=== PATIENT | male | born 1950 | race Caucasian/White ===

== ENCOUNTER 2019-12-18 16:19 | Inpatient (IN) ==
[2019-12-19] MEDS ORDERED: FluocinoNIDE 0.05% CRM 15 GM TUBE TP PRN (22:04)
[2019-12-20] MEDS: Levothyroxine 25 MCG TABLET PO SCH (06:13)
[2019-12-20 06:30] LABS: Basophils % 0.5 %; Eosinophils # 0.3 K/mcL (0.0-0.6); Eosinophils % 4.7 %; Hemoglobin 7.8 g/dL (12.9-16.9); Immature Granulocytes % 0.7 % (0-4); Lymphocytes # 0.5 K/mcL (0.6-4.6); Lymphocytes % 8.6 %; Mean Corpuscular HGB Conc 31.2 g/dL (31.6-35.5); Mean Corpuscular Hemoglobin 29.2 pg (28.0-33.3); Mean Corpuscular Volume 93.6 fL (83.0-100.0); Mean Platelet Volume 10.2 fL (9.4-12.4); Monocytes # 0.6 K/mcL (0.0-1.3); Monocytes % 11.3 %; Neutrophils # 4.1 K/mcL (1.6-8.9); Platelet Count 238 K/mcL (140-400); Red Blood Count 2.67 M/mcL (4.19-5.50); Red Cell Distribution Width 18.7 % (11.5-14.5); Segmented Neutrophils % 74.2 %; White Blood Count 5.6 K/mcL (4.3-11.1)
[2019-12-20 06:52] LABS: Calcium 8.3 mg/dL (8.6-10.3)
[2019-12-20] MEDS: Calcium Acetate 667 MG CAPSULE PO SCH ×3 (07:53→17:50)
[2019-12-20] MEDS: allopurinoL 100 MG TABLET PO SCH (07:53)
[2019-12-20] MEDS: Cholecalciferol (D-3) 1,000 UNIT (25MCG) TABLET PO SCH (07:53)
[2019-12-20] MEDS: Loratadine 10 MG TABLET PO SCH (07:54)
[2019-12-20] MEDS: Multivit/Ca/Min/Fe/FA 1 TAB TABLET PO SCH (07:54)
[2019-12-20] MEDS: lisinopriL 5 MG TABLET PO SCH (07:54)
[2019-12-20] MEDS: Pregabalin 75 MG CAPSULE PO SCH ×2 (07:54→21:51)
[2019-12-20] MEDS: *HR* Amiodarone 200 MG TABLET PO SCH ×2 (07:54→21:51)
[2019-12-20] MEDS: *HR* GlipiZIDE XL (24 HR) 10 MG TABLET PO SCH (07:54)
[2019-12-20] MEDS: Apixaban 5 MG TABLET PO SCH ×2 (07:55→21:51)
[2019-12-20] MEDS: Aspirin Enteric Coated 81 MG Tablet PO SCH (07:55)
[2019-12-20] MEDS: Fish Oil 1,000 Mg Softgel PO SCH (07:56)
[2019-12-20] MEDS: ALOGLIPTIN BENZOATE 12.5 MG PO SCH (07:56)
[2019-12-20] MEDS ORDERED: *HR* Metformin 500 MG TABLET PO SCH (08:00)
[2019-12-20] MEDS: Dorzolamide OPTH 10 ML BOTTLE BOTH EYES SCH (08:00)
[2019-12-20] MEDS: ceFAZolin 2,000 MG in 0.9 % Sodium Chloride 100 ML IVPB SCH (08:48)
[2019-12-20] MEDS ORDERED: CEFAZOLIN 2 GM IV SCH (09:00)
[2019-12-20] MEDS ORDERED: *HR* Dextrose 50 % in Water (Vial) 50 ML VIAL IVP PRN (09:11)
[2019-12-20] MEDS ORDERED: Dextrose Gel 15 GM/37.5 ML TUBE PO PRN ×2 (09:11)
[2019-12-20] MEDS ORDERED: D5% in Water 1,000 ML IVC PRN (09:11)
[2019-12-20] MEDS: Tiotropium 18 MCG inhalation IH SCH (09:25)
[2019-12-20 15:35] LABS: Estimated Average Glucose 131 mg/dl
[2019-12-20] MEDS: Megestrol Acetate 400 MG/10 ML UDC PO SCH (18:22)
[2019-12-20] MEDS: Insulin LISPRO 300 UNITS/3 ML VIAL SQ SCH (21:30)
[2019-12-20] MEDS: Latanoprost 2.5 ML BOTTLE BOTH EYES SCH (21:51)
[2019-12-20] MEDS: *HR* OxyCODONE/APAP 5/325 TABLET PO PRN (21:53)
[2019-12-21] MEDS: Levothyroxine 25 MCG TABLET PO SCH (06:43)
[2019-12-21] MEDS: Insulin LISPRO 300 UNITS/3 ML VIAL SQ SCH ×3 (09:10→16:07)
[2019-12-21] MEDS: Aspirin Enteric Coated 81 MG Tablet PO SCH (09:17)
[2019-12-21] MEDS: Megestrol Acetate 400 MG/10 ML UDC PO SCH (09:17)
[2019-12-21] MEDS: Loratadine 10 MG TABLET PO SCH (09:17)
[2019-12-21] MEDS: Apixaban 5 MG TABLET PO SCH ×2 (09:17→20:53)
[2019-12-21] MEDS: Multivit/Ca/Min/Fe/FA 1 TAB TABLET PO SCH (09:17)
[2019-12-21] MEDS: Pregabalin 75 MG CAPSULE PO SCH ×2 (09:17→20:53)
[2019-12-21] MEDS: Calcium Acetate 667 MG CAPSULE PO SCH ×3 (09:18→16:07)
[2019-12-21] MEDS: allopurinoL 100 MG TABLET PO SCH (09:18)
[2019-12-21] MEDS: Cholecalciferol (D-3) 1,000 UNIT (25MCG) TABLET PO SCH (09:18)
[2019-12-21] MEDS: ceFAZolin 2,000 MG in 0.9 % Sodium Chloride 100 ML IVPB SCH (09:18)
[2019-12-21] MEDS: Fish Oil 1,000 Mg Softgel PO SCH (09:19)
[2019-12-21] MEDS: *HR* Amiodarone 200 MG TABLET PO SCH ×2 (09:19→20:53)
[2019-12-21] MEDS: ALOGLIPTIN BENZOATE 12.5 MG PO SCH (09:19)
[2019-12-21] MEDS: *HR* GlipiZIDE XL (24 HR) 10 MG TABLET PO SCH (09:19)
[2019-12-21] MEDS: lisinopriL 5 MG TABLET PO SCH (09:21)
[2019-12-21 09:23] LABS: Hematocrit 27.3 % (37.5-50.1); Hemoglobin 8.3 g/dL (12.9-16.9); Mean Corpuscular HGB Conc 30.4 g/dL (31.6-35.5); Mean Corpuscular Volume 95.5 fL (83.0-100.0); Mean Platelet Volume 9.9 fL (9.4-12.4); Platelet Count 246 K/mcL (140-400); Red Blood Count 2.86 M/mcL (4.19-5.50); Red Cell Distribution Width 18.8 % (11.5-14.5); White Blood Count 7.1 K/mcL (4.3-11.1)
[2019-12-21] MEDS: Dorzolamide OPTH 10 ML BOTTLE BOTH EYES SCH (09:24)
[2019-12-21 09:37] LABS: Calcium 8.7 mg/dL (8.6-10.3); Potassium 4.1 mEq/L (3.5-5.1)
[2019-12-21] MEDS: Tiotropium 18 MCG inhalation IH SCH (10:05)
[2019-12-21] MEDS ORDERED: DiphenhydraMINE CREAM 28.4 GM TUBE TP PRN (19:41)
[2019-12-21] MEDS: Latanoprost 2.5 ML BOTTLE BOTH EYES SCH (23:16)
[2019-12-21] MEDS: Melatonin 3 MG TABLET PO PRN (23:16)
[2019-12-22] MEDS: *HR* OxyCODONE/APAP 5/325 TABLET PO PRN ×2 (00:28→20:46)
[2019-12-22] MEDS: Levothyroxine 25 MCG TABLET PO SCH (06:03)
[2019-12-22] MEDS: Insulin LISPRO 300 UNITS/3 ML VIAL SQ SCH ×3 (09:02→17:44)
[2019-12-22] MEDS: Aspirin Enteric Coated 81 MG Tablet PO SCH (09:09)
[2019-12-22] MEDS: *HR* GlipiZIDE XL (24 HR) 10 MG TABLET PO SCH (09:09)
[2019-12-22] MEDS: Cholecalciferol (D-3) 1,000 UNIT (25MCG) TABLET PO SCH (09:09)
[2019-12-22] MEDS: Multivit/Ca/Min/Fe/FA 1 TAB TABLET PO SCH (09:09)
[2019-12-22] MEDS: Megestrol Acetate 400 MG/10 ML UDC PO SCH (09:09)
[2019-12-22] MEDS: Apixaban 5 MG TABLET PO SCH ×2 (09:09→20:38)
[2019-12-22] MEDS: Loratadine 10 MG TABLET PO SCH (09:09)
[2019-12-22] MEDS: Calcium Acetate 667 MG CAPSULE PO SCH ×3 (09:10→17:43)
[2019-12-22] MEDS: lisinopriL 5 MG TABLET PO SCH (09:10)
[2019-12-22] MEDS: *HR* Amiodarone 200 MG TABLET PO SCH ×2 (09:10→20:38)
[2019-12-22] MEDS: ceFAZolin 2,000 MG in 0.9 % Sodium Chloride 100 ML IVPB SCH (09:10)
[2019-12-22] MEDS: Pregabalin 75 MG CAPSULE PO SCH ×2 (09:10→20:38)
[2019-12-22] MEDS: Dorzolamide OPTH 10 ML BOTTLE BOTH EYES SCH (09:12)
[2019-12-22] MEDS: allopurinoL 100 MG TABLET PO SCH (09:13)
[2019-12-22] MEDS: Fish Oil 1,000 Mg Softgel PO SCH (09:13)
[2019-12-22] MEDS: ALOGLIPTIN BENZOATE 12.5 MG PO SCH (09:13)
[2019-12-22] MEDS: Tiotropium 18 MCG inhalation IH SCH (11:08)
[2019-12-22] MEDS: Latanoprost 2.5 ML BOTTLE BOTH EYES SCH (20:38)
[2019-12-23] MEDS: Levothyroxine 25 MCG TABLET PO SCH (05:54)
[2019-12-23] MEDS: Insulin LISPRO 300 UNITS/3 ML VIAL SQ SCH ×3 (07:37→16:50)
[2019-12-23] MEDS: ceFAZolin 2,000 MG in 0.9 % Sodium Chloride 100 ML IVPB SCH (08:11)
[2019-12-23] MEDS: Megestrol Acetate 400 MG/10 ML UDC PO SCH (08:14)
[2019-12-23] MEDS: Calcium Acetate 667 MG CAPSULE PO SCH ×3 (08:15→17:26)
[2019-12-23] MEDS: Pregabalin 75 MG CAPSULE PO SCH ×2 (08:16→20:18)
[2019-12-23] MEDS: *HR* Amiodarone 200 MG TABLET PO SCH ×2 (08:16→20:18)
[2019-12-23] MEDS: Aspirin Enteric Coated 81 MG Tablet PO SCH (08:16)
[2019-12-23] MEDS: Loratadine 10 MG TABLET PO SCH (08:16)
[2019-12-23] MEDS: lisinopriL 5 MG TABLET PO SCH (08:16)
[2019-12-23] MEDS: Cholecalciferol (D-3) 1,000 UNIT (25MCG) TABLET PO SCH (08:16)
[2019-12-23] MEDS: Multivit/Ca/Min/Fe/FA 1 TAB TABLET PO SCH (08:16)
[2019-12-23] MEDS: allopurinoL 100 MG TABLET PO SCH (08:16)
[2019-12-23] MEDS: Apixaban 5 MG TABLET PO SCH ×2 (08:17→20:18)
[2019-12-23] MEDS: Fish Oil 1,000 Mg Softgel PO SCH (08:20)
[2019-12-23] MEDS: ALOGLIPTIN BENZOATE 12.5 MG PO SCH (08:20)
[2019-12-23] MEDS: Dorzolamide OPTH 10 ML BOTTLE BOTH EYES SCH (08:21)
[2019-12-23] MEDS: Tiotropium 18 MCG inhalation IH SCH (11:32)
[2019-12-23] MEDS: Latanoprost 2.5 ML BOTTLE BOTH EYES SCH (20:18)
[2019-12-24] MEDS: Levothyroxine 25 MCG TABLET PO SCH (05:43)
[2019-12-24] MEDS: Insulin LISPRO 300 UNITS/3 ML VIAL SQ SCH ×3 (07:48→19:23)
[2019-12-24] MEDS: Megestrol Acetate 400 MG/10 ML UDC PO SCH (09:32)
[2019-12-24] MEDS: ceFAZolin 2,000 MG in 0.9 % Sodium Chloride 100 ML IVPB SCH (09:33)
[2019-12-24] MEDS: Calcium Acetate 667 MG CAPSULE PO SCH ×3 (09:33→19:23)
[2019-12-24] MEDS: Cholecalciferol (D-3) 1,000 UNIT (25MCG) TABLET PO SCH (09:33)
[2019-12-24] MEDS: Aspirin Enteric Coated 81 MG Tablet PO SCH (09:34)
[2019-12-24] MEDS: lisinopriL 5 MG TABLET PO SCH (09:34)
[2019-12-24] MEDS: *HR* Amiodarone 200 MG TABLET PO SCH ×2 (09:34→20:34)
[2019-12-24] MEDS: allopurinoL 100 MG TABLET PO SCH (09:34)
[2019-12-24] MEDS: Loratadine 10 MG TABLET PO SCH (09:34)
[2019-12-24] MEDS: Pregabalin 75 MG CAPSULE PO SCH ×2 (09:34→20:34)
[2019-12-24] MEDS: Multivit/Ca/Min/Fe/FA 1 TAB TABLET PO SCH (09:34)
[2019-12-24] MEDS: Apixaban 5 MG TABLET PO SCH ×2 (09:34→20:33)
[2019-12-24] MEDS: Dorzolamide OPTH 10 ML BOTTLE BOTH EYES SCH (09:35)
[2019-12-24] MEDS: ALOGLIPTIN BENZOATE 12.5 MG PO SCH (09:36)
[2019-12-24] MEDS: Fish Oil 1,000 Mg Softgel PO SCH (09:36)
[2019-12-24] MEDS: Tiotropium 18 MCG inhalation IH SCH (10:05)
[2019-12-24] MEDS: Latanoprost 2.5 ML BOTTLE BOTH EYES SCH (20:34)
[2019-12-24] MEDS: Melatonin 3 MG TABLET PO PRN (20:34)
[2019-12-25 06:37] LABS: Hematocrit 24.5 % (37.5-50.1); Hemoglobin 7.6 g/dL (12.9-16.9); Mean Corpuscular Hemoglobin 29.3 pg (28.0-33.3); Mean Corpuscular Volume 94.6 fL (83.0-100.0); Mean Platelet Volume 10.9 fL (9.4-12.4); Platelet Count 221 K/mcL (140-400); Red Blood Count 2.59 M/mcL (4.19-5.50); Red Cell Distribution Width 18.4 % (11.5-14.5); White Blood Count 6.4 K/mcL (4.3-11.1)
[2019-12-25 06:53] LABS: Calcium 8.2 mg/dL (8.6-10.3); Magnesium 1.9 mg/dL (1.6-2.6); Potassium 4.3 mEq/L (3.5-5.1)
[2019-12-25] MEDS: Levothyroxine 25 MCG TABLET PO SCH (06:59)
[2019-12-25] MEDS: Insulin LISPRO 300 UNITS/3 ML VIAL SQ SCH ×3 (08:46→16:57)
[2019-12-25] MEDS: Megestrol Acetate 400 MG/10 ML UDC PO SCH (09:24)
[2019-12-25] MEDS: lisinopriL 5 MG TABLET PO SCH (09:25)
[2019-12-25] MEDS: *HR* Amiodarone 200 MG TABLET PO SCH ×2 (09:25→20:05)
[2019-12-25] MEDS: Multivit/Ca/Min/Fe/FA 1 TAB TABLET PO SCH (09:25)
[2019-12-25] MEDS: Pregabalin 75 MG CAPSULE PO SCH ×2 (09:25→20:05)
[2019-12-25] MEDS: Cholecalciferol (D-3) 1,000 UNIT (25MCG) TABLET PO SCH (09:25)
[2019-12-25] MEDS: Apixaban 5 MG TABLET PO SCH ×2 (09:25→20:05)
[2019-12-25] MEDS: Aspirin Enteric Coated 81 MG Tablet PO SCH (09:25)
[2019-12-25] MEDS: Loratadine 10 MG TABLET PO SCH (09:25)
[2019-12-25] MEDS: allopurinoL 100 MG TABLET PO SCH (09:25)
[2019-12-25] MEDS: Tiotropium 18 MCG inhalation IH SCH (09:25)
[2019-12-25] MEDS: Calcium Acetate 667 MG CAPSULE PO SCH ×3 (09:25→16:56)
[2019-12-25] MEDS: Fish Oil 1,000 Mg Softgel PO SCH (09:26)
[2019-12-25] MEDS: Dorzolamide OPTH 10 ML BOTTLE BOTH EYES SCH (09:26)
[2019-12-25] MEDS: ceFAZolin 2,000 MG in 0.9 % Sodium Chloride 100 ML IVPB SCH (09:31)
[2019-12-25] MEDS: ALOGLIPTIN BENZOATE 12.5 MG PO SCH (10:00)
[2019-12-25] MEDS: Latanoprost 2.5 ML BOTTLE BOTH EYES SCH (20:04)
[2019-12-26] MEDS: Levothyroxine 25 MCG TABLET PO SCH (06:12)
[2019-12-26] MEDS: Aspirin Enteric Coated 81 MG Tablet PO SCH (08:57)
[2019-12-26] MEDS: Calcium Acetate 667 MG CAPSULE PO SCH ×3 (08:57→16:59)
[2019-12-26] MEDS: Cholecalciferol (D-3) 1,000 UNIT (25MCG) TABLET PO SCH (08:57)
[2019-12-26] MEDS: Loratadine 10 MG TABLET PO SCH (08:57)
[2019-12-26] MEDS: *HR* Amiodarone 200 MG TABLET PO SCH ×2 (08:57→21:41)
[2019-12-26] MEDS: allopurinoL 100 MG TABLET PO SCH (08:58)
[2019-12-26] MEDS: Pregabalin 75 MG CAPSULE PO SCH ×2 (08:58→21:41)
[2019-12-26] MEDS: Apixaban 5 MG TABLET PO SCH ×2 (08:58→21:41)
[2019-12-26] MEDS: Multivit/Ca/Min/Fe/FA 1 TAB TABLET PO SCH (08:58)
[2019-12-26] MEDS: Megestrol Acetate 400 MG/10 ML UDC PO SCH (08:58)
[2019-12-26] MEDS: ceFAZolin 2,000 MG in 0.9 % Sodium Chloride 100 ML IVPB SCH (09:02)
[2019-12-26] MEDS: Insulin LISPRO 300 UNITS/3 ML VIAL SQ SCH ×3 (09:03→16:59)
[2019-12-26] MEDS: Tiotropium 18 MCG inhalation IH SCH (09:04)
[2019-12-26] MEDS: Fish Oil 1,000 Mg Softgel PO SCH (09:05)
[2019-12-26] MEDS: ALOGLIPTIN BENZOATE 12.5 MG PO SCH (09:05)
[2019-12-26] MEDS: lisinopriL 5 MG TABLET PO SCH (09:06)
[2019-12-26] MEDS: Dorzolamide OPTH 10 ML BOTTLE BOTH EYES SCH ×2 (09:15→21:43)
[2019-12-26] MEDS: Latanoprost 2.5 ML BOTTLE BOTH EYES SCH (21:41)
[2019-12-26] MEDS: Ciprofloxacin/Dex *EAR* Susp 7.5 ML BOTTLE LEFT EAR SCH (21:56)
[2019-12-27] MEDS: Levothyroxine 25 MCG TABLET PO SCH (06:15)
[2019-12-27] MEDS: Insulin LISPRO 300 UNITS/3 ML VIAL SQ SCH ×3 (08:04→17:30)
[2019-12-27] MEDS: Megestrol Acetate 400 MG/10 ML UDC PO SCH (08:05)
[2019-12-27] MEDS: Multivit/Ca/Min/Fe/FA 1 TAB TABLET PO SCH (08:05)
[2019-12-27] MEDS: *HR* Amiodarone 200 MG TABLET PO SCH ×2 (08:05→20:32)
[2019-12-27] MEDS: Calcium Acetate 667 MG CAPSULE PO SCH ×3 (08:05→17:37)
[2019-12-27] MEDS: Aspirin Enteric Coated 81 MG Tablet PO SCH (08:05)
[2019-12-27] MEDS: allopurinoL 100 MG TABLET PO SCH (08:05)
[2019-12-27] MEDS: Cholecalciferol (D-3) 1,000 UNIT (25MCG) TABLET PO SCH (08:05)
[2019-12-27] MEDS: Loratadine 10 MG TABLET PO SCH (08:06)
[2019-12-27] MEDS: Pregabalin 75 MG CAPSULE PO SCH ×2 (08:06→20:33)
[2019-12-27] MEDS: Apixaban 5 MG TABLET PO SCH ×2 (08:06→20:32)
[2019-12-27] MEDS: lisinopriL 5 MG TABLET PO SCH (08:06)
[2019-12-27] MEDS: Fish Oil 1,000 Mg Softgel PO SCH (08:10)
[2019-12-27] MEDS: ALOGLIPTIN BENZOATE 12.5 MG PO SCH (08:11)
[2019-12-27] MEDS: ceFAZolin 2,000 MG in 0.9 % Sodium Chloride 100 ML IVPB SCH (08:16)
[2019-12-27] MEDS: Ciprofloxacin/Dex *EAR* Susp 7.5 ML BOTTLE LEFT EAR SCH ×2 (08:48→20:36)
[2019-12-27] MEDS: Tiotropium 18 MCG inhalation IH SCH (10:29)
[2019-12-27] MEDS: Melatonin 3 MG TABLET PO PRN (20:33)
[2019-12-27] MEDS: *HR* OxyCODONE/APAP 5/325 TABLET PO PRN (20:34)
[2019-12-27] MEDS: Latanoprost 2.5 ML BOTTLE BOTH EYES SCH (20:35)
[2019-12-28] MEDS: Levothyroxine 25 MCG TABLET PO SCH (05:28)
[2019-12-28 05:48] LABS: Basophils % 0.7 %; Eosinophils # 0.3 K/mcL (0.0-0.6); Eosinophils % 4.4 %; Hematocrit 23.2 % (37.5-50.1); Hemoglobin 7.2 g/dL (12.9-16.9); Immature Granulocytes % 0.5 % (0-4); Lymphocytes # 0.8 K/mcL (0.6-4.6); Lymphocytes % 12.6 %; Mean Corpuscular Hemoglobin 29.5 pg (28.0-33.3); Mean Corpuscular Volume 95.1 fL (83.0-100.0); Mean Platelet Volume 10.1 fL (9.4-12.4); Monocytes # 0.9 K/mcL (0.0-1.3); Platelet Count 249 K/mcL (140-400); Red Blood Count 2.44 M/mcL (4.19-5.50); Red Cell Distribution Width 17.7 % (11.5-14.5); Segmented Neutrophils % 66.8 %; White Blood Count 5.9 K/mcL (4.3-11.1)
[2019-12-28] MEDS: Megestrol Acetate 400 MG/10 ML UDC PO SCH (08:53)
[2019-12-28] MEDS: Aspirin Enteric Coated 81 MG Tablet PO SCH (08:54)
[2019-12-28] MEDS: Multivit/Ca/Min/Fe/FA 1 TAB TABLET PO SCH (08:54)
[2019-12-28] MEDS: Cholecalciferol (D-3) 1,000 UNIT (25MCG) TABLET PO SCH (08:54)
[2019-12-28] MEDS: Calcium Acetate 667 MG CAPSULE PO SCH ×3 (08:54→18:55)
[2019-12-28] MEDS: Loratadine 10 MG TABLET PO SCH (08:54)
[2019-12-28] MEDS: lisinopriL 5 MG TABLET PO SCH (08:54)
[2019-12-28] MEDS: Pregabalin 75 MG CAPSULE PO SCH ×2 (08:54→20:16)
[2019-12-28] MEDS: *HR* Amiodarone 200 MG TABLET PO SCH ×2 (08:54→20:16)
[2019-12-28] MEDS: allopurinoL 100 MG TABLET PO SCH (08:54)
[2019-12-28] MEDS: Ciprofloxacin/Dex *EAR* Susp 7.5 ML BOTTLE LEFT EAR SCH ×2 (08:54→20:20)
[2019-12-28] MEDS: Apixaban 5 MG TABLET PO SCH ×2 (08:54→20:17)
[2019-12-28] MEDS: ALOGLIPTIN BENZOATE 12.5 MG PO SCH (08:55)
[2019-12-28] MEDS: Fish Oil 1,000 Mg Softgel PO SCH (08:55)
[2019-12-28] MEDS: Dorzolamide OPTH 10 ML BOTTLE BOTH EYES SCH (08:55)
[2019-12-28] MEDS: Insulin LISPRO 300 UNITS/3 ML VIAL SQ SCH ×3 (08:55→18:55)
[2019-12-28] MEDS: Tiotropium 18 MCG inhalation IH SCH (10:34)
[2019-12-28] MEDS: Melatonin 3 MG TABLET PO PRN (20:16)
[2019-12-28] MEDS: Latanoprost 2.5 ML BOTTLE BOTH EYES SCH (20:18)
[2019-12-29] MEDS: Levothyroxine 25 MCG TABLET PO SCH (05:48)
[2019-12-29] MEDS ORDERED: Ondansetron 4 MG/2 ML VIAL IVP ONE (06:32)
[2019-12-29] MEDS: Tiotropium 18 MCG inhalation IH SCH (07:53)
[2019-12-29] MEDS: Insulin LISPRO 300 UNITS/3 ML VIAL SQ SCH ×3 (08:31→17:19)
[2019-12-29] MEDS: Apixaban 5 MG TABLET PO SCH ×2 (08:37→21:29)
[2019-12-29] MEDS: Megestrol Acetate 400 MG/10 ML UDC PO SCH (08:37)
[2019-12-29] MEDS: *HR* Amiodarone 200 MG TABLET PO SCH ×2 (08:38→21:29)
[2019-12-29] MEDS: Multivit/Ca/Min/Fe/FA 1 TAB TABLET PO SCH (08:38)
[2019-12-29] MEDS: Loratadine 10 MG TABLET PO SCH (08:38)
[2019-12-29] MEDS: Cholecalciferol (D-3) 1,000 UNIT (25MCG) TABLET PO SCH (08:38)
[2019-12-29] MEDS: allopurinoL 100 MG TABLET PO SCH (08:38)
[2019-12-29] MEDS: Pregabalin 75 MG CAPSULE PO SCH ×2 (08:38→21:29)
[2019-12-29] MEDS: lisinopriL 5 MG TABLET PO SCH (08:38)
[2019-12-29] MEDS: Aspirin Enteric Coated 81 MG Tablet PO SCH (08:38)
[2019-12-29] MEDS: Calcium Acetate 667 MG CAPSULE PO SCH ×3 (08:38→17:19)
[2019-12-29] MEDS: Fish Oil 1,000 Mg Softgel PO SCH (08:42)
[2019-12-29] MEDS: Ciprofloxacin/Dex *EAR* Susp 7.5 ML BOTTLE LEFT EAR SCH ×2 (08:42→21:29)
[2019-12-29] MEDS: ALOGLIPTIN BENZOATE 12.5 MG PO SCH (08:42)
[2019-12-29] MEDS: Dorzolamide OPTH 10 ML BOTTLE BOTH EYES SCH (08:42)
[2019-12-29] MEDS: *HR* OxyCODONE/APAP 5/325 TABLET PO PRN (18:23)
[2019-12-29] MEDS: Latanoprost 2.5 ML BOTTLE BOTH EYES SCH (21:28)
[2019-12-29] MEDS: Melatonin 3 MG TABLET PO PRN (21:29)
[2019-12-30] MEDS: Levothyroxine 25 MCG TABLET PO SCH (06:29)
[2019-12-30 07:24] LABS: Basophils % 0.4 %; Eosinophils # 0.2 K/mcL (0.0-0.6); Eosinophils % 2.9 %; Hematocrit 25.1 % (37.5-50.1); Hemoglobin 7.8 g/dL (12.9-16.9); Lymphocytes # 0.9 K/mcL (0.6-4.6); Mean Corpuscular HGB Conc 31.1 g/dL (31.6-35.5); Mean Corpuscular Hemoglobin 29.7 pg (28.0-33.3); Mean Corpuscular Volume 95.4 fL (83.0-100.0); Mean Platelet Volume 10.1 fL (9.4-12.4); Monocytes # 0.8 K/mcL (0.0-1.3); Monocytes % 12.1 %; Neutrophils # 4.9 K/mcL (1.6-8.9); Platelet Count 283 K/mcL (140-400); Red Blood Count 2.63 M/mcL (4.19-5.50); Segmented Neutrophils % 70.6 %; White Blood Count 6.9 K/mcL (4.3-11.1)
[2019-12-30 07:42] LABS: Calcium 8.9 mg/dL (8.6-10.3); Potassium 4.4 mEq/L (3.5-5.1)
[2019-12-30] MEDS: Insulin LISPRO 300 UNITS/3 ML VIAL SQ SCH ×3 (08:54→17:29)
[2019-12-30] MEDS: Megestrol Acetate 400 MG/10 ML UDC PO SCH (08:59)
[2019-12-30] MEDS: Multivit/Ca/Min/Fe/FA 1 TAB TABLET PO SCH (08:59)
[2019-12-30] MEDS: Cholecalciferol (D-3) 1,000 UNIT (25MCG) TABLET PO SCH (09:00)
[2019-12-30] MEDS: Pregabalin 75 MG CAPSULE PO SCH ×2 (09:00→20:04)
[2019-12-30] MEDS: allopurinoL 100 MG TABLET PO SCH (09:00)
[2019-12-30] MEDS: Apixaban 5 MG TABLET PO SCH ×2 (09:00→20:04)
[2019-12-30] MEDS: Aspirin Enteric Coated 81 MG Tablet PO SCH (09:00)
[2019-12-30] MEDS: Loratadine 10 MG TABLET PO SCH (09:00)
[2019-12-30] MEDS: Calcium Acetate 667 MG CAPSULE PO SCH ×3 (09:00→17:29)
[2019-12-30] MEDS: Ciprofloxacin/Dex *EAR* Susp 7.5 ML BOTTLE LEFT EAR SCH ×2 (09:00→20:06)
[2019-12-30] MEDS: lisinopriL 5 MG TABLET PO SCH (09:00)
[2019-12-30] MEDS: Fish Oil 1,000 Mg Softgel PO SCH (09:04)
[2019-12-30] MEDS: ALOGLIPTIN BENZOATE 12.5 MG PO SCH (09:04)
[2019-12-30] MEDS: *HR* Amiodarone 200 MG TABLET PO SCH ×2 (09:08→20:03)
[2019-12-30] MEDS: Dorzolamide OPTH 10 ML BOTTLE BOTH EYES SCH (09:08)
[2019-12-30] MEDS: Tiotropium 18 MCG inhalation IH SCH (10:57)
[2019-12-30] MEDS: Melatonin 3 MG TABLET PO PRN (20:04)
[2019-12-30] MEDS: Latanoprost 2.5 ML BOTTLE BOTH EYES SCH (20:05)
[2019-12-31] MEDS: Levothyroxine 25 MCG TABLET PO SCH (05:56)
[2019-12-31] MEDS: Insulin LISPRO 300 UNITS/3 ML VIAL SQ SCH ×3 (07:19→18:30)
[2019-12-31] MEDS: Multivit/Ca/Min/Fe/FA 1 TAB TABLET PO SCH (07:33)
[2019-12-31] MEDS: Calcium Acetate 667 MG CAPSULE PO SCH ×3 (07:33→18:30)
[2019-12-31] MEDS: allopurinoL 100 MG TABLET PO SCH (07:33)
[2019-12-31] MEDS: Cholecalciferol (D-3) 1,000 UNIT (25MCG) TABLET PO SCH (07:34)
[2019-12-31] MEDS: lisinopriL 5 MG TABLET PO SCH (07:34)
[2019-12-31] MEDS: Apixaban 5 MG TABLET PO SCH ×2 (07:34→20:34)
[2019-12-31] MEDS: Loratadine 10 MG TABLET PO SCH (07:34)
[2019-12-31] MEDS: Ciprofloxacin/Dex *EAR* Susp 7.5 ML BOTTLE LEFT EAR SCH (07:34)
[2019-12-31] MEDS: Megestrol Acetate 400 MG/10 ML UDC PO SCH (07:34)
[2019-12-31] MEDS: Aspirin Enteric Coated 81 MG Tablet PO SCH (07:34)
[2019-12-31] MEDS: Pregabalin 75 MG CAPSULE PO SCH ×2 (07:34→20:35)
[2019-12-31] MEDS: *HR* Amiodarone 200 MG TABLET PO SCH ×2 (07:34→20:36)
[2019-12-31] MEDS: Fish Oil 1,000 Mg Softgel PO SCH (07:35)
[2019-12-31] MEDS: ALOGLIPTIN BENZOATE 12.5 MG PO SCH (07:35)
[2019-12-31] MEDS: Dorzolamide OPTH 10 ML BOTTLE BOTH EYES SCH (07:35)
[2019-12-31] MEDS: Tiotropium 18 MCG inhalation IH SCH (10:24)
[2019-12-31] MEDS: Melatonin 3 MG TABLET PO PRN (20:35)
[2019-12-31] MEDS: Latanoprost 2.5 ML BOTTLE BOTH EYES SCH (20:53)
[2020-01-01] MEDS: Levothyroxine 25 MCG TABLET PO SCH (05:38)
[2020-01-01] MEDS: Insulin LISPRO 300 UNITS/3 ML VIAL SQ SCH ×3 (07:46→16:46)
[2020-01-01] MEDS: Loratadine 10 MG TABLET PO SCH (07:48)
[2020-01-01] MEDS: Apixaban 5 MG TABLET PO SCH ×2 (07:48→20:00)
[2020-01-01] MEDS: Aspirin Enteric Coated 81 MG Tablet PO SCH (07:48)
[2020-01-01] MEDS: Cholecalciferol (D-3) 1,000 UNIT (25MCG) TABLET PO SCH (07:48)
[2020-01-01] MEDS: *HR* Amiodarone 200 MG TABLET PO SCH ×2 (07:48→20:00)
[2020-01-01] MEDS: lisinopriL 5 MG TABLET PO SCH (07:48)
[2020-01-01] MEDS: allopurinoL 100 MG TABLET PO SCH (07:48)
[2020-01-01] MEDS: Pregabalin 75 MG CAPSULE PO SCH ×2 (07:48→19:57)
[2020-01-01] MEDS: Calcium Acetate 667 MG CAPSULE PO SCH ×3 (07:49→17:07)
[2020-01-01] MEDS: Multivit/Ca/Min/Fe/FA 1 TAB TABLET PO SCH (07:49)
[2020-01-01] MEDS: Megestrol Acetate 400 MG/10 ML UDC PO SCH (07:49)
[2020-01-01] MEDS: Fish Oil 1,000 Mg Softgel PO SCH (07:50)
[2020-01-01] MEDS: ALOGLIPTIN BENZOATE 12.5 MG PO SCH (07:50)
[2020-01-01 10:12] LABS: Hematocrit 25.6 % (37.5-50.1); Hemoglobin 8.1 g/dL (12.9-16.9); Mean Corpuscular HGB Conc 31.6 g/dL (31.6-35.5); Mean Corpuscular Volume 94.8 fL (83.0-100.0); Platelet Count 337 K/mcL (140-400); Red Cell Distribution Width 18.1 % (11.5-14.5); White Blood Count 8.3 K/mcL (4.3-11.1)
[2020-01-01] MEDS: Dorzolamide OPTH 10 ML BOTTLE BOTH EYES SCH (10:15)
[2020-01-01] MEDS: Tiotropium 18 MCG inhalation IH SCH (10:24)
[2020-01-01 10:31] LABS: Albumin/Globulin Ratio 0.9 (1.1-2.2); Bilirubin,Total 0.4 mg/dL (0.3-1.0); Calcium 9.4 mg/dL (8.6-10.3); Globulin 3.4 g/dL (2.4-3.5); Total Protein 6.4 g/dL (6.4-8.9)
[2020-01-01] MEDS ORDERED: *HR* LORazepam 0.5 MG TABLET PO ONE (19:18)
[2020-01-01] MEDS: Latanoprost 2.5 ML BOTTLE BOTH EYES SCH (20:01)
[2020-01-01] MEDS: Melatonin 3 MG TABLET PO PRN (21:39)
[2020-01-02] MEDS: Levothyroxine 25 MCG TABLET PO SCH (05:39)
[2020-01-02] MEDS: Insulin LISPRO 300 UNITS/3 ML VIAL SQ SCH ×3 (09:22→19:01)
[2020-01-02] MEDS: Apixaban 5 MG TABLET PO SCH ×2 (09:26→19:50)
[2020-01-02] MEDS: allopurinoL 100 MG TABLET PO SCH (09:27)
[2020-01-02] MEDS: Cholecalciferol (D-3) 1,000 UNIT (25MCG) TABLET PO SCH (09:27)
[2020-01-02] MEDS: Aspirin Enteric Coated 81 MG Tablet PO SCH (09:27)
[2020-01-02] MEDS: *HR* Amiodarone 200 MG TABLET PO SCH ×2 (09:27→19:49)
[2020-01-02] MEDS: Calcium Acetate 667 MG CAPSULE PO SCH ×3 (09:27→19:02)
[2020-01-02] MEDS: Multivit/Ca/Min/Fe/FA 1 TAB TABLET PO SCH (09:27)
[2020-01-02] MEDS: Pregabalin 75 MG CAPSULE PO SCH ×2 (09:27→19:51)
[2020-01-02] MEDS: lisinopriL 5 MG TABLET PO SCH (09:27)
[2020-01-02] MEDS: Loratadine 10 MG TABLET PO SCH (09:27)
[2020-01-02] MEDS: Megestrol Acetate 400 MG/10 ML UDC PO SCH (09:27)
[2020-01-02] MEDS: Dorzolamide OPTH 10 ML BOTTLE BOTH EYES SCH (09:28)
[2020-01-02] MEDS: ALOGLIPTIN BENZOATE 12.5 MG PO SCH (09:28)
[2020-01-02] MEDS: Fish Oil 1,000 Mg Softgel PO SCH (09:29)
[2020-01-02] MEDS: Tiotropium 18 MCG inhalation IH SCH (11:10)
[2020-01-02] MEDS ORDERED: *HR* LORazepam 0.5 MG TABLET PO ONE (19:18)
[2020-01-02] MEDS: Latanoprost 2.5 ML BOTTLE BOTH EYES SCH (19:52)
[2020-01-02] MEDS: Melatonin 3 MG TABLET PO PRN (21:46)
[2020-01-03 06:31] LABS: Hematocrit 22.3 % (37.5-50.1); Mean Corpuscular HGB Conc 31.4 g/dL (31.6-35.5); Mean Corpuscular Hemoglobin 29.7 pg (28.0-33.3); Mean Corpuscular Volume 94.5 fL (83.0-100.0); Mean Platelet Volume 10.6 fL (9.4-12.4); Platelet Count 323 K/mcL (140-400); Red Blood Count 2.36 M/mcL (4.19-5.50); White Blood Count 6.9 K/mcL (4.3-11.1)
[2020-01-03 07:06] LABS: Albumin 2.8 g/dL (3.5-5.7); Albumin/Globulin Ratio 0.9 (1.1-2.2); Bilirubin,Total 0.4 mg/dL (0.3-1.0); Calcium 9.2 mg/dL (8.6-10.3); Globulin 3.2 g/dL (2.4-3.5); Potassium 3.4 mEq/L (3.5-5.1)
[2020-01-03] MEDS: allopurinoL 100 MG TABLET PO SCH (08:09)
[2020-01-03] MEDS: lisinopriL 5 MG TABLET PO SCH (08:09)
[2020-01-03] MEDS: Calcium Acetate 667 MG CAPSULE PO SCH ×3 (08:09→16:30)
[2020-01-03] MEDS: Loratadine 10 MG TABLET PO SCH (08:09)
[2020-01-03] MEDS: Cholecalciferol (D-3) 1,000 UNIT (25MCG) TABLET PO SCH (08:10)
[2020-01-03] MEDS: Levothyroxine 25 MCG TABLET PO SCH (08:10)
[2020-01-03] MEDS: Pregabalin 75 MG CAPSULE PO SCH ×2 (08:10→20:47)
[2020-01-03] MEDS: Megestrol Acetate 400 MG/10 ML UDC PO SCH (08:10)
[2020-01-03] MEDS: Apixaban 5 MG TABLET PO SCH ×2 (08:10→20:47)
[2020-01-03] MEDS: *HR* Amiodarone 200 MG TABLET PO SCH ×2 (08:10→20:47)
[2020-01-03] MEDS: Multivit/Ca/Min/Fe/FA 1 TAB TABLET PO SCH (08:10)
[2020-01-03] MEDS: Aspirin Enteric Coated 81 MG Tablet PO SCH (08:10)
[2020-01-03] MEDS: Fish Oil 1,000 Mg Softgel PO SCH (08:11)
[2020-01-03] MEDS: Dorzolamide OPTH 10 ML BOTTLE BOTH EYES SCH (08:11)
[2020-01-03] MEDS: ALOGLIPTIN BENZOATE 12.5 MG PO SCH (08:11)
[2020-01-03] MEDS: Insulin LISPRO 300 UNITS/3 ML VIAL SQ SCH ×3 (08:11→16:30)
[2020-01-03] MEDS: Tiotropium 18 MCG inhalation IH SCH (08:33)
[2020-01-03] MEDS ORDERED: 0.9 % Sodium Chloride 250 ML IVC SCH (10:30)
[2020-01-03] MEDS ORDERED: Lactulose Oral Soln 20 GM/30 ML UDC PO ONE (12:26)
[2020-01-03 19:39] LABS: % Iron Saturation 12 % (20-55); Iron 27 mcg/dL (65-175); Transferrin 165 mg/dL (203-362)
[2020-01-03 19:58] LABS: Ferritin 352 ng/mL (20-250)
[2020-01-03] MEDS: QUEtiapine Fumarate 25 MG TABLET PO SCH (20:47)
[2020-01-03 20:48] LABS: Folate > 22.3 ng/mL (3.0-16.0); Vitamin B12 377 pg/mL (250-1100)
[2020-01-03] MEDS: Latanoprost 2.5 ML BOTTLE BOTH EYES SCH (20:48)
[2020-01-04] MEDS: Levothyroxine 25 MCG TABLET PO SCH (06:27)
[2020-01-04 07:04] LABS: Hematocrit 26.1 % (37.5-50.1); Hemoglobin 8.3 g/dL (12.9-16.9); Mean Corpuscular HGB Conc 31.8 g/dL (31.6-35.5); Mean Corpuscular Hemoglobin 29.9 pg (28.0-33.3); Mean Corpuscular Volume 93.9 fL (83.0-100.0); Mean Platelet Volume 10.5 fL (9.4-12.4); Platelet Count 341 K/mcL (140-400); Red Blood Count 2.78 M/mcL (4.19-5.50); Red Cell Distribution Width 18.3 % (11.5-14.5); White Blood Count 6.9 K/mcL (4.3-11.1)
[2020-01-04] MEDS: Insulin LISPRO 300 UNITS/3 ML VIAL SQ SCH ×3 (07:39→16:36)
[2020-01-04] MEDS: lisinopriL 5 MG TABLET PO SCH (07:40)
[2020-01-04] MEDS: Megestrol Acetate 400 MG/10 ML UDC PO SCH (07:59)
[2020-01-04] MEDS: Loratadine 10 MG TABLET PO SCH (07:59)
[2020-01-04] MEDS: allopurinoL 100 MG TABLET PO SCH (07:59)
[2020-01-04] MEDS: Calcium Acetate 667 MG CAPSULE PO SCH ×3 (07:59→16:36)
[2020-01-04] MEDS: Pregabalin 75 MG CAPSULE PO SCH ×2 (07:59→21:03)
[2020-01-04] MEDS: Cholecalciferol (D-3) 1,000 UNIT (25MCG) TABLET PO SCH (07:59)
[2020-01-04] MEDS: Apixaban 5 MG TABLET PO SCH ×2 (07:59→21:02)
[2020-01-04] MEDS: Fish Oil 1,000 Mg Softgel PO SCH (08:01)
[2020-01-04] MEDS: ALOGLIPTIN BENZOATE 12.5 MG PO SCH (08:01)
[2020-01-04] MEDS: Aspirin Enteric Coated 81 MG Tablet PO SCH (08:01)
[2020-01-04] MEDS: *HR* Amiodarone 200 MG TABLET PO SCH ×2 (08:01→21:03)
[2020-01-04] MEDS: Multivit/Ca/Min/Fe/FA 1 TAB TABLET PO SCH (08:01)
[2020-01-04] MEDS: Tiotropium 18 MCG inhalation IH SCH (08:03)
[2020-01-04] MEDS: Dorzolamide OPTH 10 ML BOTTLE BOTH EYES SCH (08:08)
[2020-01-04] MEDS: QUEtiapine Fumarate 25 MG TABLET PO SCH (21:02)
[2020-01-04] MEDS: Latanoprost 2.5 ML BOTTLE BOTH EYES SCH (21:03)
[2020-01-04] MEDS: Melatonin 3 MG TABLET PO PRN (21:03)
[2020-01-05] MEDS: Levothyroxine 25 MCG TABLET PO SCH (05:37)
[2020-01-05 06:47] LABS: Basophils % 0.4 %; Eosinophils # 0.2 K/mcL (0.0-0.6); Eosinophils % 3.4 %; Hemoglobin 8.3 g/dL (12.9-16.9); Immature Granulocytes % 1.1 % (0-4); Lymphocytes % 14.4 %; Mean Corpuscular HGB Conc 31.9 g/dL (31.6-35.5); Mean Corpuscular Hemoglobin 29.7 pg (28.0-33.3); Mean Corpuscular Volume 93.2 fL (83.0-100.0); Mean Platelet Volume 10.7 fL (9.4-12.4); Monocytes # 0.9 K/mcL (0.0-1.3); Monocytes % 12.2 %; Neutrophils # 4.8 K/mcL (1.6-8.9); Platelet Count 320 K/mcL (140-400); Red Blood Count 2.79 M/mcL (4.19-5.50); Segmented Neutrophils % 68.5 %; White Blood Count 7.1 K/mcL (4.3-11.1)
[2020-01-05 07:13] LABS: Calcium 8.5 mg/dL (8.6-10.3); Potassium 3.3 mEq/L (3.5-5.1)
[2020-01-05] MEDS: Insulin LISPRO 300 UNITS/3 ML VIAL SQ SCH ×3 (07:39→16:45)
[2020-01-05] MEDS: Loratadine 10 MG TABLET PO SCH (07:41)
[2020-01-05] MEDS: Apixaban 5 MG TABLET PO SCH ×2 (07:41→20:32)
[2020-01-05] MEDS: Dorzolamide OPTH 10 ML BOTTLE BOTH EYES SCH (07:42)
[2020-01-05] MEDS: Pregabalin 75 MG CAPSULE PO SCH ×2 (07:42→20:33)
[2020-01-05] MEDS: Calcium Acetate 667 MG CAPSULE PO SCH ×3 (07:42→16:45)
[2020-01-05] MEDS: *HR* Amiodarone 200 MG TABLET PO SCH ×2 (07:42→20:32)
[2020-01-05] MEDS: Multivit/Ca/Min/Fe/FA 1 TAB TABLET PO SCH (07:42)
[2020-01-05] MEDS: Aspirin Enteric Coated 81 MG Tablet PO SCH (07:42)
[2020-01-05] MEDS: Fish Oil 1,000 Mg Softgel PO SCH (07:42)
[2020-01-05] MEDS: Cholecalciferol (D-3) 1,000 UNIT (25MCG) TABLET PO SCH (07:42)
[2020-01-05] MEDS: allopurinoL 100 MG TABLET PO SCH (07:42)
[2020-01-05] MEDS: Megestrol Acetate 400 MG/10 ML UDC PO SCH (07:42)
[2020-01-05] MEDS: lisinopriL 5 MG TABLET PO SCH (07:43)
[2020-01-05] MEDS: ALOGLIPTIN BENZOATE 12.5 MG PO SCH (07:43)
[2020-01-05] MEDS ORDERED: *HR* LORazepam 0.5 MG TABLET PO PRN (09:19)
[2020-01-05] MEDS: Tiotropium 18 MCG inhalation IH SCH (10:48)
[2020-01-05] MEDS: QUEtiapine Fumarate 25 MG TABLET PO SCH (20:32)
[2020-01-05] MEDS: Melatonin 3 MG TABLET PO PRN (20:33)
[2020-01-05] MEDS: Latanoprost 2.5 ML BOTTLE BOTH EYES SCH (22:57)
[2020-01-06] MEDS: Levothyroxine 25 MCG TABLET PO SCH (05:58)
[2020-01-06] MEDS: *HR* Amiodarone 200 MG TABLET PO SCH ×2 (08:39→21:10)
[2020-01-06] MEDS: Calcium Acetate 667 MG CAPSULE PO SCH ×3 (08:39→16:40)
[2020-01-06] MEDS: Cholecalciferol (D-3) 1,000 UNIT (25MCG) TABLET PO SCH (08:39)
[2020-01-06] MEDS: Apixaban 5 MG TABLET PO SCH ×2 (08:39→21:10)
[2020-01-06] MEDS: Loratadine 10 MG TABLET PO SCH (08:39)
[2020-01-06] MEDS: Pregabalin 75 MG CAPSULE PO SCH ×2 (08:39→21:10)
[2020-01-06] MEDS: Aspirin Enteric Coated 81 MG Tablet PO SCH (08:39)
[2020-01-06] MEDS: Multivit/Ca/Min/Fe/FA 1 TAB TABLET PO SCH (08:39)
[2020-01-06] MEDS: allopurinoL 100 MG TABLET PO SCH (08:40)
[2020-01-06] MEDS: Insulin LISPRO 300 UNITS/3 ML VIAL SQ SCH ×3 (08:40→16:40)
[2020-01-06] MEDS: Megestrol Acetate 400 MG/10 ML UDC PO SCH (08:41)
[2020-01-06] MEDS: Dorzolamide OPTH 10 ML BOTTLE BOTH EYES SCH (08:42)
[2020-01-06] MEDS: ALOGLIPTIN BENZOATE 12.5 MG PO SCH (08:42)
[2020-01-06] MEDS: Fish Oil 1,000 Mg Softgel PO SCH (08:42)
[2020-01-06] MEDS: lisinopriL 5 MG TABLET PO SCH (08:43)
[2020-01-06] MEDS: Tiotropium 18 MCG inhalation IH SCH (10:27)
[2020-01-06] MEDS: Melatonin 3 MG TABLET PO PRN (21:10)
[2020-01-06] MEDS: QUEtiapine Fumarate 25 MG TABLET PO SCH (21:10)
[2020-01-06] MEDS: Latanoprost 2.5 ML BOTTLE BOTH EYES SCH (21:41)
[2020-01-07] MEDS: Levothyroxine 25 MCG TABLET PO SCH (05:59)
[2020-01-07] MEDS: Insulin LISPRO 300 UNITS/3 ML VIAL SQ SCH ×3 (07:15→16:10)
[2020-01-07] MEDS: Cholecalciferol (D-3) 1,000 UNIT (25MCG) TABLET PO SCH (08:13)
[2020-01-07] MEDS: Calcium Acetate 667 MG CAPSULE PO SCH ×3 (08:13→18:54)
[2020-01-07] MEDS: Pregabalin 75 MG CAPSULE PO SCH ×2 (08:13→20:53)
[2020-01-07] MEDS: Loratadine 10 MG TABLET PO SCH (08:13)
[2020-01-07] MEDS: *HR* Amiodarone 200 MG TABLET PO SCH ×2 (08:14→20:53)
[2020-01-07] MEDS: Apixaban 5 MG TABLET PO SCH ×2 (08:14→20:52)
[2020-01-07] MEDS: Aspirin Enteric Coated 81 MG Tablet PO SCH (08:14)
[2020-01-07] MEDS: Multivit/Ca/Min/Fe/FA 1 TAB TABLET PO SCH (08:14)
[2020-01-07] MEDS: Megestrol Acetate 400 MG/10 ML UDC PO SCH (08:14)
[2020-01-07] MEDS: allopurinoL 100 MG TABLET PO SCH (08:14)
[2020-01-07] MEDS: ALOGLIPTIN BENZOATE 12.5 MG PO SCH (08:19)
[2020-01-07] MEDS: Fish Oil 1,000 Mg Softgel PO SCH (08:19)
[2020-01-07] MEDS: Dorzolamide OPTH 10 ML BOTTLE BOTH EYES SCH (08:20)
[2020-01-07] MEDS: Tiotropium 18 MCG inhalation IH SCH (11:06)
[2020-01-07] MEDS: Melatonin 3 MG TABLET PO PRN (20:52)
[2020-01-07] MEDS: QUEtiapine Fumarate 25 MG TABLET PO SCH (20:53)
[2020-01-07] MEDS: Latanoprost 2.5 ML BOTTLE BOTH EYES SCH (20:53)
[2020-01-08] MEDS: Levothyroxine 25 MCG TABLET PO SCH (05:44)
[2020-01-08] MEDS: Insulin LISPRO 300 UNITS/3 ML VIAL SQ SCH ×3 (07:17→16:51)
[2020-01-08 07:22] LABS: Hematocrit 29.1 % (37.5-50.1); Hemoglobin 9.6 g/dL (12.9-16.9); Mean Corpuscular Hemoglobin 30.3 pg (28.0-33.3); Mean Corpuscular Volume 91.8 fL (83.0-100.0); Mean Platelet Volume 10.1 fL (9.4-12.4); Platelet Count 319 K/mcL (140-400); Red Blood Count 3.17 M/mcL (4.19-5.50); Red Cell Distribution Width 17.3 % (11.5-14.5)
[2020-01-08] MEDS ORDERED: 0.9 % Sodium Chloride 500 ML IVC ONE ×2 (07:42→09:57)
[2020-01-08 07:43] LABS: Calcium 9.2 mg/dL (8.6-10.3); Potassium 3.7 mEq/L (3.5-5.1)
[2020-01-08] MEDS: Apixaban 5 MG TABLET PO SCH ×2 (08:31→20:34)
[2020-01-08] MEDS: Pregabalin 75 MG CAPSULE PO SCH ×2 (08:31→20:35)
[2020-01-08] MEDS: Multivit/Ca/Min/Fe/FA 1 TAB TABLET PO SCH (08:31)
[2020-01-08] MEDS: Cholecalciferol (D-3) 1,000 UNIT (25MCG) TABLET PO SCH (08:31)
[2020-01-08] MEDS: Aspirin Enteric Coated 81 MG Tablet PO SCH (08:31)
[2020-01-08] MEDS: Calcium Acetate 667 MG CAPSULE PO SCH ×3 (08:31→17:11)
[2020-01-08] MEDS: Megestrol Acetate 400 MG/10 ML UDC PO SCH (08:31)
[2020-01-08] MEDS: allopurinoL 100 MG TABLET PO SCH (08:31)
[2020-01-08] MEDS: Loratadine 10 MG TABLET PO SCH (08:31)
[2020-01-08] MEDS: Dorzolamide OPTH 10 ML BOTTLE BOTH EYES SCH (08:32)
[2020-01-08] MEDS: ALOGLIPTIN BENZOATE 12.5 MG PO SCH (08:32)
[2020-01-08] MEDS: Fish Oil 1,000 Mg Softgel PO SCH (08:32)
[2020-01-08] MEDS: Tiotropium 18 MCG inhalation IH SCH (09:07)
[2020-01-08] MEDS: Melatonin 3 MG TABLET PO PRN (20:34)
[2020-01-08] MEDS: Latanoprost 2.5 ML BOTTLE BOTH EYES SCH (20:34)
[2020-01-08] MEDS: *HR* OxyCODONE/APAP 5/325 TABLET PO PRN (20:35)
[2020-01-08] MEDS: QUEtiapine Fumarate 25 MG TABLET PO SCH (20:35)
[2020-01-09] MEDS: Levothyroxine 25 MCG TABLET PO SCH (05:32)
[2020-01-09] MEDS: Insulin LISPRO 300 UNITS/3 ML VIAL SQ SCH ×3 (07:15→17:56)
[2020-01-09] MEDS: Tiotropium 18 MCG inhalation IH SCH (08:13)
[2020-01-09] MEDS: Megestrol Acetate 400 MG/10 ML UDC PO SCH (09:05)
[2020-01-09] MEDS: Cholecalciferol (D-3) 1,000 UNIT (25MCG) TABLET PO SCH (09:06)
[2020-01-09] MEDS: Loratadine 10 MG TABLET PO SCH (09:06)
[2020-01-09] MEDS: allopurinoL 100 MG TABLET PO SCH (09:06)
[2020-01-09] MEDS: Calcium Acetate 667 MG CAPSULE PO SCH ×3 (09:06→17:56)
[2020-01-09] MEDS: *HR* Amiodarone 200 MG TABLET PO SCH ×2 (09:06→20:42)
[2020-01-09] MEDS: Multivit/Ca/Min/Fe/FA 1 TAB TABLET PO SCH (09:06)
[2020-01-09] MEDS: Aspirin Enteric Coated 81 MG Tablet PO SCH (09:06)
[2020-01-09] MEDS: Pregabalin 75 MG CAPSULE PO SCH ×2 (09:07→20:42)
[2020-01-09] MEDS: Apixaban 5 MG TABLET PO SCH ×2 (09:07→20:42)
[2020-01-09] MEDS: Fish Oil 1,000 Mg Softgel PO SCH (09:08)
[2020-01-09] MEDS: Dorzolamide OPTH 10 ML BOTTLE BOTH EYES SCH (09:08)
[2020-01-09] MEDS: ALOGLIPTIN BENZOATE 12.5 MG PO SCH (09:08)
[2020-01-09] MEDS: QUEtiapine Fumarate 25 MG TABLET PO SCH (20:42)
[2020-01-09] MEDS: Latanoprost 2.5 ML BOTTLE BOTH EYES SCH (20:50)
[2020-01-10] MEDS: Levothyroxine 25 MCG TABLET PO SCH (06:09)
[2020-01-10] MEDS: Megestrol Acetate 400 MG/10 ML UDC PO SCH (07:51)
[2020-01-10] MEDS: Calcium Acetate 667 MG CAPSULE PO SCH ×3 (07:52→16:44)
[2020-01-10] MEDS: Aspirin Enteric Coated 81 MG Tablet PO SCH (07:52)
[2020-01-10] MEDS: Insulin LISPRO 300 UNITS/3 ML VIAL SQ SCH ×3 (07:52→16:44)
[2020-01-10] MEDS: Apixaban 5 MG TABLET PO SCH ×2 (07:52→20:52)
[2020-01-10] MEDS: Cholecalciferol (D-3) 1,000 UNIT (25MCG) TABLET PO SCH (07:53)
[2020-01-10] MEDS: Pregabalin 75 MG CAPSULE PO SCH ×2 (07:53→20:52)
[2020-01-10] MEDS: *HR* Amiodarone 200 MG TABLET PO SCH ×2 (07:53→20:51)
[2020-01-10] MEDS: Loratadine 10 MG TABLET PO SCH (07:53)
[2020-01-10] MEDS: allopurinoL 100 MG TABLET PO SCH (07:53)
[2020-01-10] MEDS: Dorzolamide OPTH 10 ML BOTTLE BOTH EYES SCH (07:54)
[2020-01-10] MEDS: Multivit/Ca/Min/Fe/FA 1 TAB TABLET PO SCH (07:54)
[2020-01-10] MEDS: ALOGLIPTIN BENZOATE 12.5 MG PO SCH (07:54)
[2020-01-10] MEDS: Fish Oil 1,000 Mg Softgel PO SCH (07:54)
[2020-01-10] MEDS: Tiotropium 18 MCG inhalation IH SCH (09:53)
[2020-01-10] MEDS: QUEtiapine Fumarate 25 MG TABLET PO SCH (20:51)
[2020-01-10] MEDS: Latanoprost 2.5 ML BOTTLE BOTH EYES SCH (20:52)
[2020-01-11] MEDS: Levothyroxine 25 MCG TABLET PO SCH (05:48)
[2020-01-11 08:35] LABS: Calcium 9.5 mg/dL (8.6-10.3); Potassium 3.4 mEq/L (3.5-5.1)
[2020-01-11 08:39] LABS: Basophils % 0.3 %; Eosinophils # 0.2 K/mcL (0.0-0.6); Eosinophils % 1.6 %; Hematocrit 25.8 % (37.5-50.1); Hemoglobin 8.4 g/dL (12.9-16.9); Immature Granulocytes % 0.8 % (0-4); Lymphocytes # 0.6 K/mcL (0.6-4.6); Lymphocytes % 5.3 %; Mean Corpuscular HGB Conc 32.6 g/dL (31.6-35.5); Mean Corpuscular Hemoglobin 29.9 pg (28.0-33.3); Mean Corpuscular Volume 91.8 fL (83.0-100.0); Mean Platelet Volume 10.4 fL (9.4-12.4); Monocytes # 0.8 K/mcL (0.0-1.3); Neutrophils # 9.5 K/mcL (1.6-8.9); Platelet Count 333 K/mcL (140-400); Red Blood Count 2.81 M/mcL (4.19-5.50); Red Cell Distribution Width 17.1 % (11.5-14.5); White Blood Count 11.2 K/mcL (4.3-11.1)
[2020-01-11] MEDS: Pregabalin 75 MG CAPSULE PO SCH ×2 (09:31→19:50)
[2020-01-11] MEDS: Apixaban 5 MG TABLET PO SCH ×2 (09:32→19:48)
[2020-01-11] MEDS: allopurinoL 100 MG TABLET PO SCH (09:32)
[2020-01-11] MEDS: Cholecalciferol (D-3) 1,000 UNIT (25MCG) TABLET PO SCH (09:32)
[2020-01-11] MEDS: Multivit/Ca/Min/Fe/FA 1 TAB TABLET PO SCH (09:32)
[2020-01-11] MEDS: *HR* Amiodarone 200 MG TABLET PO SCH ×2 (09:32→19:50)
[2020-01-11] MEDS: Calcium Acetate 667 MG CAPSULE PO SCH ×3 (09:33→19:51)
[2020-01-11] MEDS: Loratadine 10 MG TABLET PO SCH (09:33)
[2020-01-11] MEDS: Aspirin Enteric Coated 81 MG Tablet PO SCH (09:33)
[2020-01-11] MEDS: Megestrol Acetate 400 MG/10 ML UDC PO SCH (09:34)
[2020-01-11] MEDS: Fish Oil 1,000 Mg Softgel PO SCH (09:42)
[2020-01-11] MEDS: ALOGLIPTIN BENZOATE 12.5 MG PO SCH (09:42)
[2020-01-11] MEDS: Dorzolamide OPTH 10 ML BOTTLE BOTH EYES SCH (09:43)
[2020-01-11] MEDS: Insulin LISPRO 300 UNITS/3 ML VIAL SQ SCH ×2 (09:45→13:10)
[2020-01-11] MEDS: Tiotropium 18 MCG inhalation IH SCH (09:50)
[2020-01-11] MEDS ORDERED: Haloperidol Lactate 5 MG/ML VIAL IVP ONE (13:58)
[2020-01-11] MEDS ORDERED: haloperidoL 1 MG TABLET PO PRN (15:53)
[2020-01-11] MEDS: cefTRIAXone 1,000 MG in 0.9 % Sodium Chloride Mini Bag 100 ML IVPB SCH (19:51)
[2020-01-11] MEDS: Latanoprost 2.5 ML BOTTLE BOTH EYES SCH (19:51)
[2020-01-11] MEDS: QUEtiapine Fumarate 25 MG TABLET PO SCH (19:51)
[2020-01-12] MEDS: Levothyroxine 25 MCG TABLET PO SCH (05:20)
[2020-01-12 07:12] LABS: Basophils % 0.2 %; Eosinophils # 0.1 K/mcL (0.0-0.6); Eosinophils % 0.5 %; Hematocrit 26.2 % (37.5-50.1); Hemoglobin 8.4 g/dL (12.9-16.9); Immature Granulocytes % 0.9 % (0-4); Lymphocytes # 0.5 K/mcL (0.6-4.6); Lymphocytes % 4.5 %; Mean Corpuscular HGB Conc 32.1 g/dL (31.6-35.5); Mean Corpuscular Hemoglobin 29.6 pg (28.0-33.3); Mean Corpuscular Volume 92.3 fL (83.0-100.0); Mean Platelet Volume 10.5 fL (9.4-12.4); Monocytes # 0.9 K/mcL (0.0-1.3); Monocytes % 8.4 %; Neutrophils # 8.8 K/mcL (1.6-8.9); Platelet Count 345 K/mcL (140-400); Red Blood Count 2.84 M/mcL (4.19-5.50); Red Cell Distribution Width 16.8 % (11.5-14.5); Segmented Neutrophils % 85.5 %; White Blood Count 10.2 K/mcL (4.3-11.1)
[2020-01-12] MEDS: Tiotropium 18 MCG inhalation IH SCH (07:44)
[2020-01-12] MEDS: Insulin LISPRO 300 UNITS/3 ML VIAL SQ SCH ×4 (08:18→17:37)
[2020-01-12] MEDS: Calcium Acetate 667 MG CAPSULE PO SCH ×2 (08:21→17:36)
[2020-01-12] MEDS: *HR* Amiodarone 200 MG TABLET PO SCH (11:04)
[2020-01-12] MEDS: allopurinoL 100 MG TABLET PO SCH (11:04)
[2020-01-12] MEDS: Loratadine 10 MG TABLET PO SCH (11:04)
[2020-01-12] MEDS: Pregabalin 75 MG CAPSULE PO SCH (11:04)
[2020-01-12] MEDS: Aspirin Enteric Coated 81 MG Tablet PO SCH (11:04)
[2020-01-12] MEDS: Multivit/Ca/Min/Fe/FA 1 TAB TABLET PO SCH (11:04)
[2020-01-12] MEDS: Cholecalciferol (D-3) 1,000 UNIT (25MCG) TABLET PO SCH (11:04)
[2020-01-12] MEDS: Apixaban 5 MG TABLET PO SCH (11:05)
[2020-01-12] MEDS: Megestrol Acetate 400 MG/10 ML UDC PO SCH (11:05)
[2020-01-12] MEDS: Dorzolamide OPTH 10 ML BOTTLE BOTH EYES SCH (11:06)
[2020-01-12] MEDS: cefTRIAXone 1,000 MG in 0.9 % Sodium Chloride Mini Bag 100 ML IVPB SCH (11:17)
[2020-01-12] MEDS: Fish Oil 1,000 Mg Softgel PO SCH (11:22)
[2020-01-12] MEDS: ALOGLIPTIN BENZOATE 12.5 MG PO SCH (11:22)
[2020-01-12] MEDS ORDERED: 0.9 % Sodium Chloride 1,000 ML IVC ONE (12:10)
[2020-01-12] MEDS ORDERED: 0.9 % Sodium Chloride 1,000 ML ONE (12:10)
[2020-01-12] MEDS ORDERED: Ipratropium/Albuterol Neb 3 ML IH ONE (12:33)
[2020-01-12 12:40] LABS: Basophils % 0.1 %; Eosinophils % 0.1 %; Hematocrit 23.3 % (37.5-50.1); Hemoglobin 7.6 g/dL (12.9-16.9); Immature Granulocytes % 0.6 % (0-4); Lymphocytes # 0.3 K/mcL (0.6-4.6); Mean Corpuscular HGB Conc 32.6 g/dL (31.6-35.5); Mean Corpuscular Hemoglobin 30.2 pg (28.0-33.3); Mean Corpuscular Volume 92.5 fL (83.0-100.0); Mean Platelet Volume 10.1 fL (9.4-12.4); Monocytes # 0.6 K/mcL (0.0-1.3); Monocytes % 6.8 %; Neutrophils # 8.4 K/mcL (1.6-8.9); Platelet Count 302 K/mcL (140-400); Red Blood Count 2.52 M/mcL (4.19-5.50); Red Cell Distribution Width 16.8 % (11.5-14.5); Segmented Neutrophils % 89.4 %; White Blood Count 9.4 K/mcL (4.3-11.1)
[2020-01-12] MEDS ORDERED: Azithromycin 500 MG in 0.9 % Sodium Chloride 250 ML IVPB SCH (13:00)
[2020-01-12 14:57] LABS: Adenovirus Not Detected (Not Detect); Bordetella Pertussis Not Detected (Not Detect); Chlamydophila pneumoniae Not Detected (Not Detect); Coronavirus 229E Not Detected (Not Detect); Coronavirus HKU1 Not Detected (Not Detect); Coronavirus NL63 Not Detected (Not Detect); Coronavirus OC43 Not Detected (Not Detect); Human Metapneumovirus Not Detected (Not Detect); Human Rhinovirus/Enterovirus Not Detected (Not Detect); Influenza A Subtype 2009 H1 Not Detected (Not Detect); Influenza B Not Detected (Not Detect); Mycoplasma pneumoniae Not Detected (Not Detect); Parainfluenza Virus 1 Not Detected (Not Detect); Parainfluenza Virus 2 Not Detected (Not Detect); Parainfluenza Virus 3 Not Detected (Not Detect); Parainfluenza Virus 4 Not Detected (Not Detect); Respiratory Syncytial Virus Not Detected (Not Detect); SARS-CoV-2 DETECTED (Not Detect)
[2020-01-12 14:58] LABS: Bilirubin,Urine Negative (Negative); Blood,Urine Negative (Negative); Clarity,Urine Clear (Clear); Color,Urine Dark Yellow (Yellow); Glucose,Urine (UA) Normal (Normal); Ketones,Urine Negative (Negative); Leukocyte Esterase,Urine Negative (Negative); Nitrite,Urine Negative (Negative); PH,Urine 7.5 pH Units (5.0-8.0); Protein,Urine 100 mg/dL (Neg-Trace); Urobilinogen,Urine Normal (Normal)
[2020-01-12 15:08] LABS: Bacteria,Urine Few per hpf (None-Few); Mucus,Urine Few per lpf (None-Few); Squamous Epithelial Cell,Urine Few per hpf (None-Few); WBC,Urine 0-3 per hpf (0-3)
[2020-01-12 16:25] VITALS: BP 90/50
[2020-01-12] MEDS ORDERED: 0.9 % Sodium Chloride 250 ML IVC ONE (17:13)
== END 2020-01-12 19:40 | disposition short-term general hospital (02) | DRG 871 ==
LOC: INPPIK 12-19 19:38
PROVIDERS: ADMIT Family Medicine; ATTEND Family Medicine